=== PATIENT | male | born 1960 | race Caucasian/White ===

== ENCOUNTER 2024-10-14 11:34 | Day surgery (SDC) | payer OTHER ==
[2024-10-12 16:08] VITALS: BMI 28.3
[2024-10-14] MEDS: IV FLUID CONTINUATION 1,000 ML IV ONE (12:09)
[2024-10-14] MEDS: LACTATED RINGERS 1,000 ML IV SCH (12:25)
[2024-10-14 12:28] VITALS: TEMP 97.9
[2024-10-14] MEDS ORDERED: PROPOFOL 10 MG/ML 20 ML VIAL IV ONE (12:41)
[2024-10-14] MEDS ORDERED: LIDOCAINE 1% INJ 10MG/ML (20 ML MDV) ONE (12:41)
[2024-10-14 13:26] VITALS: BP 134/95; PULSE 80; RESP 17
--- NOTE | 2024-10-14 14:43 | P.PCN ---
Date of Procedure: 10/14/24 Procedure(s) Performed: BRIEF HISTORY: Patient is a 63-year-old pleasant white male scheduled for an elective colonoscopy as a part of screening for colon cancer. PROCEDURE PERFORMED: Colonoscopy with snare polypectomy. PREOPERATIVE DIAGNOSIS: Screening for colon cancer. IV sedation per Anesthesia. PROCEDURE: After informed consent was obtained, the patient, was brought into the endoscopy unit. IV sedation was administered by Anesthesia under continuous monitoring. Digital rectal examination was normal. Initially the Olympus CF-160 flexible video colonoscope was then inserted in the rectum, gradually advanced into the cecum without any difficulty. Careful examination was performed as the scope was gradually being withdrawn. Ileocecal valve and the appendiceal orifice were visualized and appeared normal. Prep was excellent. On the ileocecal valve there was a 1.5 cm linear polyp that was removed by cold snare polypectomy. Mucosa of the cecum, ascending colon, transverse colon, descending colon, sigmoid colon, and rectum appeared normal. In the distal rectum there was a 1 cm polyp removed by snare polypectomy. Retroflexion was performed in the rectum and no lesions were seen. The patient tolerated the procedure well. IMPRESSION: 1.5 cm linear polyp at ileocecal valve status post piecemeal snare polypectomy 1 cm distal rectal polyp status post hot snare polypectomy RECOMMENDATIONS: Findings of this examination were discussed with the patient as well as his family. He was advised to follow-up with the biopsy results. If the biopsy reveals adenoma he can have repeat colonoscopy in 3 years..
== END 2024-10-14 13:34 | disposition home or self-care (01) ==
LOC: ORWHC2ENDO 11:34
PROVIDERS: ATTEND Internal Medicine Gastroenterology
DX: Z12.11 Encounter for screening for malignant neoplasm of colon (principal); D12.0 Benign neoplasm of cecum; D12.8 Benign neoplasm of rectum; K21.9 Gastro-esophageal reflux disease without esophagitis; Z79.899 Other long term (current) drug therapy
CPT/HCPCS: 88305; 45385; J2003; J2704